=== PATIENT | male | born 1990 | race Two or more races ===

== ENCOUNTER 2016-12-23 09:13 | Inpatient (IN) | payer MEDICAID ==
[~2016-12-23] VITALS: Ht 180.3 cm; Wt 129.1 kg
[~2016-12-23 09:13] MED LIST: ATOR20TA86 PO; DIVA500T35 PO; LEVE500T53 PO; TOPI100 PO
[2016-12-23 09:31] LABS: GLUCOSE,POINT OF CARE 108 MG/DL (70-110)
[2016-12-23 10:05] LABS: BASOPHILS % (AUTO) 0.8 % (0.0-2.0); EOSINOPHILS % (AUTO) 1.9 % (1.0-6.0); HEMATOCRIT 44.8 % (41-53); LYMPHOCYTES # (AUTO) 2.4 K/uL (1.0-4.8); LYMPHOCYTES % (AUTO) 33.6 % (22.0-44.0); MEAN CORPUSCULAR HEMOGLOBIN 29.1 pg (26.0-34.0); MEAN CORPUSCULAR HGB CONC 33.4 G/dL (31.0-37.0); MEAN CORPUSCULAR VOLUME 87 fL (80-100); MONOCYTES # (AUTO) 0.4 K/uL (0.1-1.0); MONOCYTES % (AUTO) 4.9 % (2.0-9.0); NEUTROPHILS # (AUTO) 4.3 K/uL (1.8-7.7); NEUTROPHILS % (AUTO) 58.8 % (40.0-70.0); PLATELET COUNT (AUTO) 190 K/uL (150-450); RED BLOOD CELL COUNT(AUTO) 5.15 MIL/uL (4.50-5.90); RED CELL DISTRIBUTION WIDTH 13.4 % (11.5-14.5); WHITE BLOOD COUNT (AUTO) 7.3 K/uL (4.5-11.0)
[2016-12-23 10:16] LABS: ANION GAP 7 mmol/L (8-16); CALCIUM, TOTAL 9.4 mg/dL (8.8-10.5); CARBON DIOXIDE 26 mmol/L (22-29); CHLORIDE 103 mmol/L (98-107); GLOMERULAR FILTR. RATE CALC > 60 mL/min (>60); POTASSIUM 4.2 mmol/L (3.5-5.1); SODIUM SERUM 136 mmol/L (136-145); UREA NITROGEN, BLOOD 8 mg/dL (7-18)
[2016-12-23] MEDS ORDERED: LORazepam 1 MG TABLET PO ONE (11:30)
[2016-12-23] MEDS ORDERED: LORazepam 2 MG/ML VIAL IM ONE (11:45)
[2016-12-23] MEDS ORDERED: LORazepam 2 MG/ML VIAL IVP ONE ×2 (11:45→14:15)
[2016-12-23 12:12] LABS: VALPROIC ACID 3 mcg/mL (50-100)
[2016-12-23] MEDS ORDERED: VALPROATE SODIUM 1,000 MG in DEXTROSE 5%-WATER 100 ML IV ONE (12:15)
[2016-12-23] MEDS ORDERED: ONDANSETRON HCL 4 MG/2 ML VIAL IVP PRN (15:45)
[2016-12-23] MEDS ORDERED: ZOLPIDEM TARTRATE 5 MG TABLET PO PRN (15:45)
[2016-12-23] MEDS ORDERED: ACETAMINOPHEN 325 MG TABLET PO PRN (15:45)
[2016-12-23] MEDS ORDERED: HYDROCODONE/ACETAMINOPHEN 5-325 MG TABLET PO PRN (15:45)
[2016-12-23] MEDS ORDERED: MORPHINE SULFATE 2 MG/ML SYRINGE IVP PRN (15:45)
[2016-12-23] MEDS ORDERED: MAGNESIUM HYDROXIDE SUSPENSION 30 ML UDCUP PO PRN (15:45)
[2016-12-23] MEDS ORDERED: BISACODYL 10 MG RECTAL RECTAL SUPPOSITORY PR PRN (15:45)
[2016-12-23] MEDS: HEPARIN SODIUM,PORCINE 5,000 UNITS/ML VIAL SQ SCH (15:48)
[2016-12-23 16:41] LABS: GLUCOSE,POINT OF CARE 80 MG/DL (70-110)
[2016-12-23] MEDS: LevETIRAcetam 500 MG TABLET PO SCH (20:35)
[2016-12-23] MEDS: ATORVASTATIN CALCIUM 20 MG TABLET PO SCH (20:35)
[2016-12-23] MEDS: DIVALPROEX SODIUM 500 MG DR TABLET PO SCH (20:35)
[2016-12-23] MEDS: TOPIRAMATE 100 MG TABLET PO SCH (20:35)
[2016-12-23] MEDS: DOCUSATE SODIUM 100 MG CAPSULE PO SCH (20:35)
[2016-12-23 21:15] VITALS: BP 111/68
[2016-12-23 23:24] VITALS: BP 111/75
[2016-12-24] MEDS: HEPARIN SODIUM,PORCINE 5,000 UNITS/ML VIAL SQ SCH ×4 (00:04→23:53)
[2016-12-24] MEDS: LORazepam 2 MG/ML VIAL IVP PRN ×3 (00:23→16:18)
[2016-12-24 05:32] VITALS: BP 90/57
[2016-12-24 08:03] VITALS: BP 106/64
[2016-12-24] MEDS: LevETIRAcetam 500 MG TABLET PO SCH ×2 (09:52→20:35)
[2016-12-24] MEDS: PANTOPRAZOLE SODIUM 40 MG DR TABLET PO SCH (09:52)
[2016-12-24] MEDS: DIVALPROEX SODIUM 500 MG DR TABLET PO SCH ×2 (09:52→20:33)
[2016-12-24] MEDS: DOCUSATE SODIUM 100 MG CAPSULE PO SCH ×2 (09:52→20:33)
[2016-12-24] MEDS: TOPIRAMATE 100 MG TABLET PO SCH ×2 (09:52→20:33)
[2016-12-24 12:00] VITALS: BP 113/71
[2016-12-24 16:02] VITALS: BP 103/48
[2016-12-24] MEDS ORDERED: SODIUM CHLORIDE 0.9% 1,000 ML IV ONE (19:15)
[2016-12-24 19:46] VITALS: BP 98/60
[2016-12-24] MEDS: ATORVASTATIN CALCIUM 20 MG TABLET PO SCH (20:33)
[2016-12-25] VITALS: BP 114/62
[2016-12-25 04:55] VITALS: BP 108/64
[2016-12-25 07:20] VITALS: BP 95/57
[2016-12-25] MEDS: DOCUSATE SODIUM 100 MG CAPSULE PO SCH (08:02)
[2016-12-25] MEDS: PANTOPRAZOLE SODIUM 40 MG DR TABLET PO SCH (08:02)
[2016-12-25] MEDS: TOPIRAMATE 100 MG TABLET PO SCH (08:02)
[2016-12-25] MEDS: DIVALPROEX SODIUM 500 MG DR TABLET PO SCH (08:02)
[2016-12-25] MEDS: LevETIRAcetam 500 MG TABLET PO SCH (08:02)
[2016-12-25] MEDS: HEPARIN SODIUM,PORCINE 5,000 UNITS/ML VIAL SQ SCH (08:10)
[2016-12-25 11:09] VITALS: BP 102/62
== END 2016-12-25 15:30 | disposition home or self-care (01) | DRG 53 ==
LOC: EMS 09:16 → 5N 20:16
PROVIDERS: ADMIT Internal Medicine; ATTEND Internal Medicine
PROC: 4A00X4Z Measurement of Central Nervous Electrical Activity, External Approach (ICD-10-PCS; principal; 2016-12-24)
DX: G40.909 Epilepsy, unspecified, not intractable, without status epilepticus (principal); G93.41 Metabolic encephalopathy; E78.5 Hyperlipidemia, unspecified; Z79.899 Other long term (current) drug therapy; Z91.14 Patient's other noncompliance with medication regimen; Z88.6 Allergy status to analgesic agent
CPT/HCPCS: 70450; 82962; 95816; 96365; 96375; 96376; 99291; G0480; G0482; J1644; J2060; J3490; J7030; J7060

== ENCOUNTER 2017-02-18 09:20 | Emergency (ER) | payer MEDICAID ==
[~2017-02-18] VITALS: Ht 175.3 cm; Wt 129.6 kg
[2017-02-18 12:03] VITALS: BP 140/96
== END 2017-02-18 12:05 | disposition home or self-care (01) ==
LOC: EMS 09:21
DX: R53.1 Weakness (principal); Z88.6 Allergy status to analgesic agent
CPT/HCPCS: 99283

== ENCOUNTER 2017-03-13 00:31 | Emergency (ER) | payer MEDICAID ==
[~2017-03-13] VITALS: Ht 175.3 cm; Wt 131.0 kg
[~2017-03-13 00:31] MED LIST changes: -ATOR20TA86 PO; -DIVA500T35 PO; -TOPI100 PO
[2017-03-13] MEDS ORDERED: TOPI100 PO (00:38)
[2017-03-13] MEDS ORDERED: ATOR20TA86 PO (00:38)
[2017-03-13 01:20] VITALS: BP 120/85
== END 2017-03-13 01:21 | disposition home or self-care (01) ==
LOC: IOPBV 00:32 → EMS 01:21
DX: T42.6X5A Adverse effect of other antiepileptic and sedative-hypnotic drugs, initial encounter (principal); Z79.82 Long term (current) use of aspirin; Y92.89 Other specified places as the place of occurrence of the external cause
CPT/HCPCS: 99281

== ENCOUNTER 2017-03-13 12:33 | Emergency (ER) | payer MEDICAID ==
[~2017-03-13] VITALS: Ht 175.3 cm; Wt 125.8 kg
[~2017-03-13 12:33] MED LIST changes: +ATOR20TA86 PO; +TOPI100 PO
[2017-03-13] MEDS ORDERED: KETOROLAC TROMETHAMINE 60 MG/2 ML VIAL IM ONE (15:45)
[2017-03-13 16:21] LABS: BASOPHILS % (AUTO) 0.5 % (0.0-2.0); HEMATOCRIT 42.8 % (41-53); HEMOGLOBIN 14.2 g/dL (13.5-17.5); LYMPHOCYTES # (AUTO) 2.7 K/uL (1.0-4.8); LYMPHOCYTES % (AUTO) 38.8 % (22.0-44.0); MEAN CORPUSCULAR HEMOGLOBIN 28.9 pg (26.0-34.0); MEAN CORPUSCULAR HGB CONC 33.2 G/dL (31.0-37.0); MEAN CORPUSCULAR VOLUME 87 fL (80-100); MONOCYTES # (AUTO) 0.4 K/uL (0.1-1.0); MONOCYTES % (AUTO) 5.8 % (2.0-9.0); NEUTROPHILS # (AUTO) 3.7 K/uL (1.8-7.7); NEUTROPHILS % (AUTO) 52.9 % (40.0-70.0); PLATELET COUNT (AUTO) 172 K/uL (150-450); RED CELL DISTRIBUTION WIDTH 13.7 % (11.5-14.5)
[2017-03-13 16:30] LABS: ANION GAP 12 mmol/L (8-16); CALCIUM, TOTAL 8.7 mg/dL (8.8-10.5); CARBON DIOXIDE 21 mmol/L (22-29); CHLORIDE 107 mmol/L (98-107); GLOMERULAR FILTR. RATE CALC > 60 mL/min (>60); POTASSIUM 3.7 mmol/L (3.5-5.1); SODIUM SERUM 140 mmol/L (136-145); UREA NITROGEN, BLOOD 11 mg/dL (7-18)
[2017-03-13 16:31] LABS: ADD UA MICROSCOPIC NO; APPEARANCE,URINE CLOUDY (CLEAR); GLUCOSE, URINE (UA) NEGATIVE (NEGATIVE); KETONES,URINE NEGATIVE (NEGATIVE); LEUKOCYTE ESTERASE ,URINE NEGATIVE (NEGATIVE); OCCULT BLOOD,URINE NEGATIVE (NEGATIVE); PROTEIN,URINE NEGATIVE (NEGATIVE)
[2017-03-13 16:38] LABS: ALANINE AMINOTRANSFERASE 67 U/L (12-78); ALBUMIN 3.8 g/dL (3.4-5.0); ASPARTATE AMINOTRANSFERASE 30 U/L (15-37); BILIRUBIN,TOTAL 0.3 mg/dL (0.1-1.0); TOTAL PROTEIN, SERUM 7.8 g/dL (6.4-8.2)
[2017-03-13 17:23] VITALS: BP 119/76
== END 2017-03-13 17:25 | disposition home or self-care (01) ==
LOC: EMS 12:38
DX: G40.909 Epilepsy, unspecified, not intractable, without status epilepticus (principal); R42 Dizziness and giddiness; R51 Headache; Z79.82 Long term (current) use of aspirin
CPT/HCPCS: 36415; 70450; 80053; 80307; 81003; 85025; 93005; 96372; 99285; J1885

== ENCOUNTER 2017-07-14 23:43 | Emergency (ER) | payer MEDICAID ==
[~2017-07-14] VITALS: Ht 175.3 cm; Wt 131.0 kg
[2017-07-15 00:40] LABS: BASOPHILS # (AUTO) 0.04 K/uL (0.00-0.20); BASOPHILS % (AUTO) 0.6 % (0.0-2.0); EOSINOPHILS # (AUTO) 0.18 K/uL (0.00-0.70); EOSINOPHILS % (AUTO) 2.45 % (1.0-6.0); HEMATOCRIT 38.8 % (41-53); HEMOGLOBIN 13.5 g/dL (13.5-17.5); LYMPHOCYTES # (AUTO) 2.9 K/uL (1.0-4.8); LYMPHOCYTES % (AUTO) 39.6 % (22.0-44.0); MEAN CORPUSCULAR HEMOGLOBIN 30.1 pg (26.0-34.0); MEAN CORPUSCULAR HGB CONC 34.7 G/dL (31.0-37.0); MEAN CORPUSCULAR VOLUME 87 fL (80-100); MONOCYTES # (AUTO) 0.6 K/uL (0.1-1.0); MONOCYTES % (AUTO) 7.5 % (2.0-9.0); NEUTROPHILS # (AUTO) 3.7 K/uL (1.8-7.7); PLATELET COUNT (AUTO) 161 K/uL (150-450); RED BLOOD CELL COUNT(AUTO) 4.48 MIL/uL (4.50-5.90); WHITE BLOOD COUNT (AUTO) 7.4 K/uL (4.5-11.0)
[2017-07-15 00:56] LABS: ANION GAP 10 mmol/L (8-16); CALCIUM, TOTAL 8.8 mg/dL (8.8-10.5); CARBON DIOXIDE 24 mmol/L (22-29); CHLORIDE 104 mmol/L (98-107); CREATININE 0.79 mg/dL (0.60-1.30); GLOMERULAR FILTR. RATE CALC > 60 mL/min (>60); POTASSIUM 3.7 mmol/L (3.5-5.1); SODIUM SERUM 138 mmol/L (136-145); UREA NITROGEN, BLOOD 8 mg/dL (7-18)
[2017-07-15 01:02] LABS: ALANINE AMINOTRANSFERASE 69 U/L (12-78); ALBUMIN 3.8 g/dL (3.4-5.0); ASPARTATE AMINOTRANSFERASE 29 U/L (15-37); BILIRUBIN,TOTAL 0.3 mg/dL (0.1-1.0); TOTAL PROTEIN, SERUM 7.5 g/dL (6.4-8.2)
[2017-07-15 01:05] LABS: LACTIC ACID 1.1 mmol/L (0.4-2.0)
[2017-07-15] MEDS ORDERED: HYDROCODONE/ACETAMINOPHEN 5-325 MG TABLET PO ONE (01:30)
[2017-07-15] MEDS ORDERED: SULFAMETHOX/TRIMETH DS 800-160 MG/TABLET PO ONE (01:30)
[2017-07-15] MEDS ORDERED: CEPHALEXIN MONOHYDRATE 500 MG CAPSULE PO ONE (01:30)
[2017-07-15 01:33] VITALS: BP 138/78
== END 2017-07-15 01:43 | disposition home or self-care (01) ==
LOC: EMS 23:44
DX: L03.115 Cellulitis of right lower limb (principal); Z88.6 Allergy status to analgesic agent
CPT/HCPCS: 83605; 99285

== ENCOUNTER 2017-11-04 15:14 | Emergency (ER) | payer MEDICAID ==
[~2017-11-04] VITALS: Ht 177.8 cm; Wt 129.6 kg
[~2017-11-04 15:14] MED LIST changes: -TOPI100 PO; +TOPI100T37 PO
[2017-11-04 16:38] LABS: BASOPHILS % (AUTO) 0.3 % (0.0-2.0); EOSINOPHILS % (AUTO) 1.7 % (1.0-6.0); HEMATOCRIT 45.1 % (41-53); HEMOGLOBIN 15.7 g/dL (13.5-17.5); LYMPHOCYTES # (AUTO) 1.3 K/uL (1.0-4.8); LYMPHOCYTES % (AUTO) 28.2 % (22.0-44.0); MEAN CORPUSCULAR HEMOGLOBIN 30.2 pg (26.0-34.0); MEAN CORPUSCULAR HGB CONC 34.7 G/dL (31.0-37.0); MEAN CORPUSCULAR VOLUME 87 fL (80-100); MONOCYTES # (AUTO) 0.4 K/uL (0.1-1.0); NEUTROPHILS # (AUTO) 2.8 K/uL (1.8-7.7); NEUTROPHILS % (AUTO) 61.8 % (40.0-70.0); PLATELET COUNT (AUTO) 162 K/uL (150-450); RED BLOOD CELL COUNT(AUTO) 5.17 MIL/uL (4.50-5.90); RED CELL DISTRIBUTION WIDTH 13.1 % (11.5-14.5); WHITE BLOOD COUNT (AUTO) 4.6 K/uL (4.5-11.0)
[2017-11-04 16:45] LABS: ADD UA MICROSCOPIC NO; APPEARANCE,URINE CLEAR (CLEAR); GLUCOSE, URINE (UA) NEGATIVE (NEGATIVE); KETONES,URINE NEGATIVE (NEGATIVE); LEUKOCYTE ESTERASE ,URINE NEGATIVE (NEGATIVE); OCCULT BLOOD,URINE NEGATIVE (NEGATIVE); PH,URINE 6.5 (5.0-8.0); PROTEIN,URINE NEGATIVE (NEGATIVE)
[2017-11-04] MEDS ORDERED: ONDANSETRON HCL 4 MG/2 ML VIAL IVP ONE (16:45)
[2017-11-04] MEDS ORDERED: SODIUM CHLORIDE 0.9% 1,000 ML IV ONE (16:45)
[2017-11-04 16:48] LABS: ANION GAP 8 mmol/L (8-16); CALCIUM, TOTAL 8.9 mg/dL (8.8-10.5); CARBON DIOXIDE 28 mmol/L (22-29); CHLORIDE 102 mmol/L (98-107); CREATININE 0.76 mg/dL (0.60-1.30); GLOMERULAR FILTR. RATE CALC > 60 mL/min (>60); POTASSIUM 3.5 mmol/L (3.5-5.1); SODIUM SERUM 138 mmol/L (136-145); UREA NITROGEN, BLOOD 7 mg/dL (7-18)
[2017-11-04 16:54] LABS: ALANINE AMINOTRANSFERASE 127 U/L (12-78); ALBUMIN 4.5 g/dL (3.4-5.0); ASPARTATE AMINOTRANSFERASE 73 U/L (15-37); BILIRUBIN,TOTAL 0.8 mg/dL (0.1-1.0); TOTAL PROTEIN, SERUM 8.4 g/dL (6.4-8.2)
[2017-11-04 18:30] VITALS: BP 129/74
== END 2017-11-04 18:49 | disposition home or self-care (01) ==
LOC: EMS 15:17
DX: R10.84 Generalized abdominal pain (principal); R11.10 Vomiting, unspecified; R19.7 Diarrhea, unspecified
CPT/HCPCS: 36415; 80053; 81003; 83690; 85025; 96361; 96374; 99284; J2405; J7030

== ENCOUNTER 2018-03-20 14:06 | Inpatient (IN) | payer MEDICAID ==
[~2018-03-20] VITALS: Ht 175.3 cm; Wt 132.2 kg
[2018-03-20 14:18] LABS: GLUCOSE,POINT OF CARE 74 MG/DL (70-110)
[2018-03-20] MEDS ORDERED: LORazepam 1 MG TABLET PO ONE (14:30)
[2018-03-20] MEDS ORDERED: SODIUM CHLORIDE 0.9% 1,000 ML IV ONE ×2 (14:30→16:15)
[2018-03-20] MEDS ORDERED: PHENYTOIN SODIUM 1,000 MG in SODIUM CHLORIDE 0.9% 150 ML IV ONE (14:30)
[2018-03-20 16:02] LABS: BASOPHILS % (AUTO) 0.8 % (0.0-2.0); EOSINOPHILS % (AUTO) 1.5 % (1.0-6.0); HEMATOCRIT 45.8 % (41-53); HEMOGLOBIN 15.5 g/dL (13.5-17.5); LYMPHOCYTES # (AUTO) 2.8 K/uL (1.0-4.8); LYMPHOCYTES % (AUTO) 31.4 % (22.0-44.0); MEAN CORPUSCULAR HEMOGLOBIN 29.2 pg (26.0-34.0); MEAN CORPUSCULAR HGB CONC 33.8 G/dL (31.0-37.0); MEAN CORPUSCULAR VOLUME 86 fL (80-100); MONOCYTES # (AUTO) 0.6 K/uL (0.1-1.0); MONOCYTES % (AUTO) 7.1 % (2.0-9.0); NEUTROPHILS # (AUTO) 5.3 K/uL (1.8-7.7); NEUTROPHILS % (AUTO) 59.2 % (40.0-70.0); PLATELET COUNT (AUTO) 202 K/uL (150-450); RED BLOOD CELL COUNT(AUTO) 5.31 MIL/uL (4.50-5.90); RED CELL DISTRIBUTION WIDTH 13.7 % (11.5-14.5)
[2018-03-20 16:07] LABS: ANION GAP 11 mmol/L (8-16); CARBON DIOXIDE 27 mmol/L (22-29); CHLORIDE 102 mmol/L (98-107); CREATININE 0.86 mg/dL (0.60-1.30); GLOMERULAR FILTR. RATE CALC > 60 mL/min (>60); GLUCOSE,RANDOM 100 mg/dL (70-110); POTASSIUM 3.4 mmol/L (3.5-5.1); SODIUM SERUM 140 mmol/L (136-145); UREA NITROGEN, BLOOD 6 mg/dL (7-18)
[2018-03-20 16:15] LABS: ALANINE AMINOTRANSFERASE 86 U/L (12-78); ALKALINE PHOSPHATASE 95 U/L (46-116); ASPARTATE AMINOTRANSFERASE 47 U/L (15-37); BILIRUBIN,TOTAL 0.4 mg/dL (0.1-1.0); TOTAL PROTEIN, SERUM 8.1 g/dL (6.4-8.2)
[2018-03-20] MEDS ORDERED: LORazepam 2 MG/ML VIAL IVP ONE (16:15)
[2018-03-20 16:32] LABS: AMPHET/METH SCREEN,URINE NEGATIVE (NEGATIVE); BARBITURATE SCREEN, URINE NEGATIVE (NEGATIVE); BENZODIAZEPINES SCREEN,URINE NEGATIVE (NEGATIVE); CANNABINOID SCREEN,URINE NEGATIVE (NEGATIVE); COCAINE SCREEN,URINE NEGATIVE (NEGATIVE); METHADONE SCREEN, URINE NEGATIVE (NEGATIVE); OPIATE SCREEN,URINE NEGATIVE (NEGATIVE); PHENCYCLIDINE SCREEN,URINE NEGATIVE (NEGATIVE)
[2018-03-20] MEDS ORDERED: CefTRIAXone SODIUM 1 GM in DEXTROSE 5%-WATER 10 ML IV ONE (17:30)
[2018-03-20] MEDS ORDERED: AZITHROMYCIN 500 MG/NS 250 ML IV ONE (17:30)
[2018-03-20] MEDS ORDERED: ONDANSETRON HCL 4 MG/2 ML VIAL IVP PRN (17:45)
[2018-03-20] MEDS ORDERED: 0.9% SODIUM CHLORIDE 10 ML SYRINGE IVP PRN ×2 (17:45→23:00)
[2018-03-20] MEDS ORDERED: ACETAMINOPHEN 325 MG TABLET PO PRN (17:45)
[2018-03-20] MEDS ORDERED: MORPHINE SULFATE 4 MG/ML SYRINGE IVP ONE (18:15)
[2018-03-20 18:17] LABS: THYROID STIMULATING HORMONE 3.41 uIU/mL (0.36-3.74)
[2018-03-20 18:56] VITALS: BP 126/77
[2018-03-20 20:30] VITALS: BP 139/71
[2018-03-20] MEDS: ATORVASTATIN CALCIUM 20 MG TABLET PO SCH (23:00)
[2018-03-20] MEDS: DOCUSATE SODIUM 100 MG CAPSULE PO SCH (23:00)
[2018-03-20] MEDS: LORazepam 2 MG/ML VIAL IM PRN (23:14)
[2018-03-20 23:29] VITALS: BP 126/80
[2018-03-20] MEDS: LevETIRAcetam 500 MG TABLET PO SCH (23:49)
[2018-03-21 00:35] VITALS: BP 130/79
[2018-03-21 00:39] VITALS: BP 124/64
[2018-03-21] MEDS: TOPIRAMATE 100 MG TABLET PO SCH ×4 (01:05→22:00)
[2018-03-21 05:00] VITALS: BP 120/72
[2018-03-21 06:06] LABS: BASOPHILS % (AUTO) 0.7 % (0.0-2.0); EOSINOPHILS % (AUTO) 2.1 % (1.0-6.0); LYMPHOCYTES # (AUTO) 2.3 K/uL (1.0-4.8); LYMPHOCYTES % (AUTO) 34.1 % (22.0-44.0); MEAN CORPUSCULAR HEMOGLOBIN 29.3 pg (26.0-34.0); MEAN CORPUSCULAR HGB CONC 34.1 G/dL (31.0-37.0); MEAN CORPUSCULAR VOLUME 86 fL (80-100); MONOCYTES # (AUTO) 0.4 K/uL (0.1-1.0); MONOCYTES % (AUTO) 6.5 % (2.0-9.0); NEUTROPHILS # (AUTO) 3.8 K/uL (1.8-7.7); NEUTROPHILS % (AUTO) 56.6 % (40.0-70.0); PLATELET COUNT (AUTO) 182 K/uL (150-450); RED BLOOD CELL COUNT(AUTO) 4.77 MIL/uL (4.50-5.90); RED CELL DISTRIBUTION WIDTH 13.4 % (11.5-14.5)
[2018-03-21 06:52] LABS: ANION GAP 8 mmol/L (8-16); CALCIUM, TOTAL 8.6 mg/dL (8.8-10.5); CARBON DIOXIDE 25 mmol/L (22-29); CHLORIDE 104 mmol/L (98-107); CREATININE 0.71 mg/dL (0.60-1.30); GLOMERULAR FILTR. RATE CALC > 60 mL/min (>60); GLUCOSE,RANDOM 91 mg/dL (70-110); POTASSIUM 3.8 mmol/L (3.5-5.1); SODIUM SERUM 137 mmol/L (136-145); UREA NITROGEN, BLOOD 6 mg/dL (7-18)
[2018-03-21 08:05] VITALS: BP 123/73
[2018-03-21] MEDS: PANTOPRAZOLE SODIUM 40 MG DR TABLET PO SCH (08:30)
[2018-03-21] MEDS: DOCUSATE SODIUM 100 MG CAPSULE PO SCH ×2 (08:30→20:43)
[2018-03-21] MEDS: LevETIRAcetam 500 MG TABLET PO SCH ×2 (08:30→20:44)
[2018-03-21] MEDS: LORazepam 2 MG/ML VIAL IM PRN ×4 (10:49→20:44)
[2018-03-21 12:52] VITALS: BP 122/75
[2018-03-21] MEDS: ACETAMINOPHEN 325 MG TABLET PO PRN (15:59)
[2018-03-21] MEDS: ATORVASTATIN CALCIUM 20 MG TABLET PO SCH (20:44)
[2018-03-21 21:00] VITALS: BP 140/89
[2018-03-22 01:11] VITALS: BP 126/77
[2018-03-22 04:57] VITALS: BP 123/76
[2018-03-22 07:24] VITALS: BP 128/79
[2018-03-22] MEDS: LevETIRAcetam 500 MG TABLET PO SCH ×2 (07:57→20:21)
[2018-03-22] MEDS: PANTOPRAZOLE SODIUM 40 MG DR TABLET PO SCH (07:57)
[2018-03-22] MEDS: DOCUSATE SODIUM 100 MG CAPSULE PO SCH ×2 (07:57→20:20)
[2018-03-22] MEDS: TOPIRAMATE 100 MG TABLET PO SCH ×2 (07:57→20:21)
[2018-03-22] MEDS: ACETAMINOPHEN 325 MG TABLET PO PRN (08:23)
[2018-03-22 11:33] VITALS: BP 125/77
[2018-03-22 15:43] VITALS: BP 130/80
[2018-03-22] MEDS: LORazepam 2 MG/ML VIAL IVP PRN ×2 (18:17→20:18)
[2018-03-22 19:44] VITALS: BP 117/70
[2018-03-22] MEDS: ATORVASTATIN CALCIUM 20 MG TABLET PO SCH (20:21)
[2018-03-23 05:37] VITALS: BP 128/74
[2018-03-23 07:49] VITALS: BP 120/72
[2018-03-23 08:01] VITALS: BP 119/73
[2018-03-23] MEDS: PANTOPRAZOLE SODIUM 40 MG DR TABLET PO SCH (08:16)
[2018-03-23] MEDS: DOCUSATE SODIUM 100 MG CAPSULE PO SCH (08:17)
[2018-03-23] MEDS: LevETIRAcetam 500 MG TABLET PO SCH (08:17)
[2018-03-23] MEDS: TOPIRAMATE 100 MG TABLET PO SCH (08:17)
[2018-03-23] MEDS: LORazepam 2 MG/ML VIAL IVP PRN (08:54)
[2018-03-23 11:53] VITALS: BP 146/93
[2018-03-23] MEDS: ACETAMINOPHEN 325 MG TABLET PO PRN (14:03)
[2018-03-23 15:57] VITALS: BP 111/68
[2018-03-23] MEDS ORDERED: LevETIRAcetam 500 MG TABLET PO SCH (21:00)
== END 2018-03-23 17:15 | disposition home or self-care (01) | DRG 53 ==
LOC: EMS 14:07 → 5S 17:44
PROVIDERS: ADMIT Internal Medicine; ATTEND Internal Medicine
DX: R56.9 Unspecified convulsions (principal); Z68.41 Body mass index [BMI] 40.0-44.9, adult; E78.5 Hyperlipidemia, unspecified; J98.11 Atelectasis; F41.1 Generalized anxiety disorder; E78.00 Pure hypercholesterolemia, unspecified; E66.9 Obesity, unspecified; Z91.19 Patient's noncompliance with other medical treatment and regimen; Z88.6 Allergy status to analgesic agent; Z79.899 Other long term (current) drug therapy
CPT/HCPCS: 83735; 84443; 87040; 93005; 96365; 96366; 96367; 96375; 99291; G0480; J0456; J0696; J1165; J2060; J2270; J2405; J7030; J7050; J7060